=== PATIENT | male | born 1965 | race Caucasian/White ===

== ENCOUNTER 2018-08-04 10:27 | Inpatient (IN) | payer OTHER ==
--- NOTE | 2018-08-04 10:47 | HP ---
CIWA Score Nausea/Vomitin Muscle Tremors: 2 Anxiety: 2 Agitation: 2 Paroxysmal Sweats: 1-Minimal Palms Moist Orientation: 0-Oriented Tacttile Disturbances: 1-Very Mild Itch/Numbness Auditory Disturbances: 1-Very Mild Visual Disturbances: 0-None Headache: 2-Mild CIWA-Ar Total Score: 13 - Admission Criteria [facility]ASAS Guidelines: Admission for Medically Managed Detox: Requires at least one of the followin. CIWA greater than 12 2. Seizures within the past 24 hours 3. Delirium tremens within the past 24 hours 4. Hallucinations within the past 24 hours 5. Acute intervention needed for co occurring medical disorder 6. Acute intervention needed for co occurring psychiatric disorder 7. Severe withdrawal that cannot be handled at a lower level of care (continued vomiting, continued diarrhea, abnormal vital signs) requiring intravenous medication and/or fluids 8. Patient presents the following: CIWA greater than 12 Admission Criteria Met: Admission criteria met Admission ROS BHS - HPI Chief Complaint: i need help to stop drinking alcohol and xanax Allergies/Adverse Reactions: Allergies Allergy/AdvReac Type Severity Reaction Status Date / Time No Known Allergies Allergy Verified 08/04/18 10:42 History of Present Illness: this 53 years old with alcohol and xanax dependence,seeking detox,withdrawal symptom,last detox 2013 did not recall the facility seizure last 2007 syncope last 6 moths ago nicotine dependence no significant period of sobriety - Ebola screening Have you traveled outside of the country in the last 21 days: No (N) Have you had contact with anyone from an Ebola affected area: No Do you have a fever: No - Review of Systems Constitutional: Loss of Appetite, Malaise, Night Sweats, Changes in sleep, Weakness EENT: reports: Nose Congestion Respiratory: reports: No Symptoms reported Cardiac: reports: No Symptoms Reported GI: reports: Nausea, Poor Appetite, Vomiting, Abdominal cramping : reports: No Symptoms Reported Musculoskeletal: reports: Back Pain, Muscle Pain Integumentary: reports: Dryness Neuro: reports: Headache, Tremors Endocrine: reports: No Symptoms Reported Hematology: reports: No Symptoms Reported Psychiatric: reports: No Sypmtoms Reported, Judgement Intact, Mood/Affect Appropiate, Orientated x3 Patient History - Patient Medical History Hx Anemia: No Hx Asthma: No Hx Chronic Obstructive Pulmonary Disease (COPD): No Hx Cancer: No Hx Cardiac Disorders: No Hx Congestive Heart Failure: No Hx Hypertension: No Hx Hypercholesterolemia: No Hx Pacemaker: No HX Cerebrovascular Accident: No Hx Seizures: Yes (last 2007) Hx Dementia: No Hx Diabetes: No Hx Gastrointestinal Disorders: No Hx Liver Disease: No Hx Genitourinary Disorders: No Hx Sexually Transmitted Disorders: No Hx Renal Disease (ESRD): No Hx Thyroid Disease: No Hx Human Immunodeficiency Virus (HIV): No (never been tested,does not want to be tested) Hx Hepatitis C: No Hx Depression: No Hx Suicide Attempt: No Hx Bipolar Disorder: No Hx Schizophrenia: No Other Medical History: no suicidal,no homicidal - Patient Surgical History Past Surgical History: No - PPD History Previous Implant?: Yes Documented Results: Negative w/o proof Implanted On Prior [facility] Admission?: No PPD to be Administered?: Yes - Smoking Cessation Smoking history: Current every day smoker Have you smoked in the past 12 months: Yes Aproximately how many cigarettes per day: 10 Cigars Per Day: 0 Hx Chewing Tobacco Use: No Initiated information on smoking cessation: Yes 'Breaking Loose' booklet given: 08/04/18 - Substance & Tx. History Hx Alcohol Use: Yes Hx Substance Use: Yes Substance Use Type: Alcohol, Tranquilizers Hx Substance Use Treatment: Yes (2014 did not recall the facility) - Substances Abused Alcohol Route: Oral Frequency: Daily Amount used: 2 pints of bacardi/2 of 6 packs of 24 ozs of beer Age of first use: 12 Date of Last Use: 08/03/18 Alprazolam (Xanax) Route: Oral Frequency: Daily Amount used: 4 to 6 mgs Age of first use: 47 Date of Last Use: 08/03/18 Family Disease History - Family Disease History Family Disease History: Other: Father (alcohol,) Admission Physical Exam BHS - Vital Signs Vital Signs: Vital Signs Temperature 97.9 F 08/04/18 10:40 Pulse Rate 82 08/04/18 10:40 Respiratory Rate 18 08/04/18 10:40 Blood Pressure 130/66 08/04/18 10:40 O2 Sat by Pulse Oximetry (%) - Physical General Appearance: Yes: Moderate Distress, Obese, Tremorous, Irritable, Sweating, Anxious HEENTM: Yes: Normal ENT Inspection, MINNIE, Pharynx Normal Respiratory: Yes: Lungs Clear, Normal Breath Sounds, No Respiratory Distress Neck: Yes: Within Normal Limits, Supple, Trachea in good position Breast: Yes: Within Normal Limits Cardiology: Yes: Within Normal Limits, Regular Rhythm, Regular Rate, S1, S2 Abdominal: Yes: Within Normal Limits, Normal Bowel Sounds, Non Tender, Soft Genitourinary: Yes: Within Normal Limits Back: Yes: Muscle Spasm Musculoskeletal: Yes: Back pain, Muscle Pain Extremities: Yes: Tremors Neurological: Yes: flight line mechanic II-XII NML intact, Fully Oriented, Alert, Motor Strength 5/5 Integumentary: Yes: Dry - Diagnostic (1) Alcohol dependence with uncomplicated withdrawal Status: Acute (2) Uncomplicated sedative, hypnotic or anxiolytic withdrawal Status: Acute (3) Nicotine dependence Status: Chronic (4) Morbid obesity Status: Chronic (5) Seizure Status: Chronic (6) Syncope Status: Chronic Cleared for Admission S - Detox or Rehab [facility] Level of Care: Medically Managed Detox Regimen/Protocol: Librium
[2018-08-04 10:57] VITALS: BMI 37.5
[2018-08-04] MEDS ORDERED: IBUPROFEN 400 MG TABLET (FP) PO PRN (11:03)
[2018-08-04] MEDS ORDERED: LOPERAMIDE HCL 2 MG CAPSULE PO PRN (11:03)
[2018-08-04] MEDS ORDERED: MAGNESIUM CITRATE 300 ML BOTTLE PO PRN (11:03)
[2018-08-04] MEDS ORDERED: MAGNESIUM HYDROX 2400MG/30ML ORAL SUSPENSION 30 ML CUP PO PRN (11:03)
[2018-08-04] MEDS ORDERED: MENTHOL/PHENOL 1 EACH UD MM PRN (11:03)
[2018-08-04] MEDS ORDERED: chlordiazePOXIDE HCL 25 MG CAPSULE PO PRN (11:03)
[2018-08-04] MEDS ORDERED: ACETAMINOPHEN 325 MG TABLET (FP) PO PRN (11:03)
[2018-08-04] MEDS ORDERED: hydrOXYzine PAMOATE 50 MG CAPSULE (FP) PO PRN (11:03)
[2018-08-04] MEDS ORDERED: P-EPHED 60MG/TRIPROLIDI 2.5MG TABLET PO PRN (11:03)
[2018-08-04] MEDS ORDERED: MAG HYDROX/AL HYDROX/SIMETH 30 ML UNIT-DOSE CUP PO PRN (11:03)
[2018-08-04] MEDS ORDERED: guaiFENesin/D-METHORPHAN HB 10 ML UNIT-DOSE CUPS PO PRN (11:03)
[2018-08-04] MEDS ORDERED: NICOTINE 14 MG/24 HOURS TOPICAL PATCH TD SCH (11:15)
[2018-08-04 14:11] VITALS: BP 119/75; PULSE 81; TEMP 96.9
--- NOTE | 2018-08-04 14:28 | DS ---
[facility] Detox Discharge Summary Admission Date: 08/04/18 Discharge Date: 08/04/18 - History Present History: Alcohol Dependence, Sedative Dependence Additional Comments: Patient admitted today and decided to leave AMA despite encouragement to complete detox. Patient made aware to call 911 if feeling sick or any withdrawal symptoms and to see his PCP JOSTIN. Pertinent Past History: Alcohol dependence Sedative dependence Nicotine dependence Morbid obesity Seizure disorder - Physical Exam Results Vital Signs: Vital Signs Temperature 96.9 F L 08/04/18 14:10 Pulse Rate 81 08/04/18 14:10 Respiratory Rate 18 08/04/18 14:10 Blood Pressure 119/75 08/04/18 14:10 O2 Sat by Pulse Oximetry (%) Pertinent Admission Physical Exam Findings: Withdrawal symptoms - Medication Discharge Medications: Ambulatory Orders Lidocaine 5% Patch [Lidoderm -] 1 patch TP DAILY 08/04/18 - Diagnosis (1) Alcohol dependence with uncomplicated withdrawal Current Visit: Yes Status: Acute (2) Morbid obesity Current Visit: Yes Status: Chronic (3) Nicotine dependence Current Visit: Yes Status: Chronic (4) Seizure Current Visit: Yes Status: Chronic (5) Syncope Current Visit: Yes Status: Chronic (6) Uncomplicated sedative, hypnotic or anxiolytic withdrawal Current Visit: Yes Status: Acute - AMA Did Patient Leave Against Medical Advice: Yes (Instructed to call 911 if feeling sick or any withdrawal symptoms)
[2018-08-04] MEDS ORDERED: chlordiazePOXIDE HCL 25 MG CAPSULE PO SCH (17:00)
[2018-08-04] MEDS ORDERED: THIAMINE HCL 100 MG TABLET (FP) PO SCH (22:00)
[2018-08-04] MEDS ORDERED: MELATONIN 5 MG TABLETS PO PRN (22:00)
[2018-08-05] MEDS ORDERED: PRENATAL VITAMINS W/ FOLIC ACID TABLET (FP) PO SCH (10:00)
[2018-08-05] MEDS ORDERED: chlordiazePOXIDE HCL 25 MG CAPSULE PO SCH (17:00)
[2018-08-06] MEDS ORDERED: chlordiazePOXIDE 5 MG CAPSULE PO SCH (17:00)
[2018-08-07] MEDS ORDERED: chlordiazePOXIDE HCL 10 MG CAPSULE PO SCH (17:00)
== END 2018-08-04 14:48 | disposition left against medical advice (07) | DRG 770 ==
LOC: YASAS 10:27 → Y3N 11:02
PROVIDERS: ADMIT Neuromusculoskeletal Medicine & OMM; ATTEND Neuromusculoskeletal Medicine & OMM
PROC: HZ2ZZZZ Detoxification Services for Substance Abuse Treatment (ICD-10-PCS; principal; 2018-08-04)
DX: F10.230 Alcohol dependence with withdrawal, uncomplicated (principal); F13.230 Sedative, hypnotic or anxiolytic dependence with withdrawal, uncomplicated; F17.210 Nicotine dependence, cigarettes, uncomplicated; R55 Syncope and collapse; Z68.37 Body mass index [BMI] 37.0-37.9, adult; Z86.69 Personal history of other diseases of the nervous system and sense organs; Z59.0 Homelessness